=== PATIENT | female | born 1960 | race Caucasian/White ===

== ENCOUNTER → 2016-09-09 | Outpatient (CLI) | payer BC ==
--- NOTE | 2016-09-09 10:04 | RAD ---
Chest, 2 views, 09/09/2016: History: Cough, chest congestion The heart size and probably vascularity are normal. There is a calcified granuloma in the left upper lobe. There is minimal parenchymal opacity in the left base obscuring a small portion of the hemidiaphragm. This probably represents scarring, as a similar appearance was present on the previous study. No acute infiltrate is seen. There is no evidence of pleural fluid. IMPRESSION: 1. Mild left basilar pleural-parenchymal scarring. 2. No acute cardiopulmonary abnormality is detected.
== END | disposition home or self-care (01) ==
LOC: DXRADRC 09:53
PROVIDERS: ATTEND Nurse Practitioner Family
DX: J98.4 Other disorders of lung (principal); J84.10 Pulmonary fibrosis, unspecified; R09.89 Other specified symptoms and signs involving the circulatory and respiratory systems
CPT/HCPCS: 71020